=== PATIENT | male | born 1955 | race Caucasian/White ===

== ENCOUNTER 2017-10-31 07:24 | Day surgery (SDC) | payer OTHER ==
[~2017-10-31 07:24] MED LIST: AVAPRO150 MG PO; BISOPROLOL FUMAR5 MG PO; DOXAZOSIN MESYLA4 MG PO; GLIMEPIRIDE4 MG PO; JANUMET 50-1,01 EACH PO; LANTUS SOL100 UNIT/1; NORVASC5 MG PO; SINGULAIR 10MG10 MG PO
== END 2017-10-31 15:40 | disposition home or self-care (01) ==
LOC: CIR.AMB 07:24
DX: D12.9 Benign neoplasm of anus and anal canal (principal); K64.2 Third degree hemorrhoids; K62.89 Other specified diseases of anus and rectum